=== PATIENT | female | born 1960 | race Two or more races ===

== ENCOUNTER 2019-07-20 10:20 | Outpatient (CLI) | payer OTHER | END 2019-07-20 10:23 | disposition home or self-care (01) | LOC: RAD 10:20 | DX: M25.572 Pain in left ankle and joints of left foot (principal) ==

== ENCOUNTER → 2019-10-02 09:05 | Outpatient (CLI) | payer OTHER ==
[~2019-10-02 09:05] MED LIST: SYNTHROID175 MCG
== END | disposition home or self-care (01) ==
LOC: LAB 09:05
DX: D64.89 Other specified anemias (principal); E88.89 Other specified metabolic disorders; D68.8 Other specified coagulation defects; N39.0 Urinary tract infection, site not specified; Z22.322 Carrier or suspected carrier of Methicillin resistant Staphylococcus aureus; Z76.89 Persons encountering health services in other specified circumstances; I49.8 Other specified cardiac arrhythmias

== ENCOUNTER 2019-10-06 05:08 | Day surgery (SDC) | payer OTHER | END 2019-10-06 11:40 | disposition home or self-care (01) | LOC: CIR.AMB 05:08 | DX: M67.472 Ganglion, left ankle and foot (principal); M65.872 Other synovitis and tenosynovitis, left ankle and foot ==